=== PATIENT | female | born 2000 | race African-American/Black ===

== ENCOUNTER 2022-05-04 05:46 | Observation (INO) ==
--- NOTE | 2022-04-27 12:37 | Anesthesiology Consultation ---
Date of Service April 27, 2022 Assessment & Plan (1) Encounter for pre-operative examination: Chart Review Chart Review: Acceptable Risk for Surgery (pending preop Covid testing results ) and Patient NOT seen in Pre Admission Testing - Check test AM DOS Per nursing assessment 04/27/2022, pt traveled to [facility] (drove) and returned 04/15/22. No known Covid positive exposures or Covid related symptoms. No known Covid infection in the past 90 days. Pt is fully vaccinated for Covid. Preop Covid testing scheduled 04/30/22= will await results History Surgery Operation Date: 05/04/22 07:30 Proposed Procedures p Bilateral Breast Reduction - Jonna Olvera MD Height/Weight Height: 5 ft 4 in Weight: 97.522 kg Allergies Allergy/AdvReac Type Severity Reaction Status Date / Time Sulfa (Sulfonamide Allergy Intermediate hives Verified 04/27/22 12:04 Antibiotics) Medications Home Medications Medication Instructions Recorded Confirmed Last Taken hydroxyzine HCl 25 mg tablet 25 mg PO BID PRN Anxiety 06/25/21 04/27/22 Unknown lamotrigine 25 mg tablet (Lamictal) 25 mg PO QAM 06/25/21 04/27/22 Unknown lisdexamfetamine 20 mg capsule 20 mg PO DAILY PRN when needing to 06/25/21 04/27/22 Unknown (Vyvanse) focus cephalexin 500 mg capsule 500 mg PO TID 7 days #21 caps 04/24/22 04/27/22 Unknown oxycodone-acetaminophen 5 mg-325 1 tab PO Q4H PRN pain 3 days #18 04/24/22 04/27/22 Unknown mg tablet (Percocet) tabs albuterol sulfate 90 mcg/actuation 2 puff inhalation Q6H PRN 04/27/22 04/27/22 Unknown aerosol inhaler Shortness Of Breath alprazolam 0.25 mg tablet 0.25 mg PO DAILY PRN Anxiety 04/27/22 04/27/22 Unknown Past Medical History Medical History ADHD Takes Vyvanse prn Anxiety and depression Asthma Inhaler prn History of COVID-19 Diagnosed 09/2021--mild symptoms, none now Macromastia Scoliosis Past Family History Family History Other Family history not known due to adoption Past Surgical History Surgical History History of adenoidectomy History of tooth extraction Social History Smoking Status: Former smoker Do You Dip or Chew Tobacco: No Smoking End Date: quit 4-5 months ago Hx Alcohol Use: Yes alcohol intake frequency: a few times a week Hx Substance Use: Yes (medical marijuana card (advised on policy)) substance use type: marijuana Last Used Substance: Unknown Last Used Substance Other:: "long time ago< I dont really use it" Lab Results Anesthesia Preop Results Results Anesthesia Widget: WBC 9.25 K/ul (4.8-10.8) 04/24/22 Hgb 12.3 g/dl (12.0-16.0) 04/24/22 Hct 38.2 % (34.1-44.9) 04/24/22 Plt 387 K/uL (130-400) 04/24/22 Na 136 mmol/L (136-145) 04/24/22 K 3.9 mmol/L (3.5-5.1) 04/24/22 Cl 103 mmol/L (98-107) 04/24/22 CO2 28 mmol/L (21-32) 04/24/22 BUN 10 mg/dl (6-23) 04/24/22 Creat 0.84 mg/dl (0.6-1.2) 04/24/22 Glucose Level 89 mg/dl (70-99(Fasting)) 04/24/22 PT 10.9 Seconds (9.0-12.0) 04/24/22 INR 1.0 (0.9-1.1) 04/24/22
[2022-05-04] MEDS ORDERED: LR 15ML/HR IV SCH (06:00)
[2022-05-04] MEDS ORDERED: ceFAZolin 2000MG 2,000 MG/15 ML SYR IV SCH (06:00)
[2022-05-04] MEDS ORDERED: fentaNYL citrate 100 MCG/2 ML VIAL IV PRN (06:52)
[2022-05-04] MEDS ORDERED: ONDANSETRON INJ 2 MG/ML 2 ML VIAL IV PRN ×2 (06:52→12:52)
[2022-05-04] MEDS ORDERED: ATROPINE SULFATE 0.1 MG/ML 10ML SYR IV PRN (06:52)
[2022-05-04] MEDS ORDERED: PROMETHAZINE HCL 6.25 MG in SODIUM CHLORIDE 0.9% 50 ML IV PRN (06:52)
--- NOTE | 2022-05-04 06:54 | History & Physical Bridge Note ---
Date of Service May 04, 2022 History & Physical Bridge Note I have examined the patient, reviewed the History & Physical and in the interval since the performance of the History & Physical I have noted the following changes of clinical significance: no changes noted
[2022-05-04] MEDS ORDERED: PROPOFOL IV EMULSION 10 MG/ML 20 ML VIAL IV ONE ×5 (07:06→14:06)
[2022-05-04] MEDS ORDERED: LIDOCAINE 2% 20 MG/ML 5 ML SYR IV ONE (07:06)
[2022-05-04] MEDS ORDERED: ROCURONIUM BROMIDE 10 MG/ML 5 ML VIAL IV ONE ×6 (07:06→12:10)
[2022-05-04] MEDS ORDERED: fentaNYL citrate 100 MCG/2 ML VIAL ONE ×2 (07:07→08:31)
[2022-05-04] MEDS ORDERED: MIDAZOLAM HCL 1 MG/ML 2ML VIAL ONE (07:07)
[2022-05-04] MEDS ORDERED: KETAMINE 50 MG/5 ML SYRINGE ONE (07:10)
[2022-05-04] MEDS ORDERED: ONDANSETRON INJ 2 MG/ML 2 ML VIAL ONE ×2 (07:11→12:10)
[2022-05-04] MEDS ORDERED: LIDOCAINE 2%/EPINEPHRINE 1:100,000 20ML ONE (07:26)
[2022-05-04] MEDS ORDERED: BUPIVACAINE 0.25% 30 ML VIAL ONE (07:27)
[2022-05-04] MEDS ORDERED: LIDOCAINE 1%/EPINEPHRINE 1:100,000 50 ML VIAL ONE (07:39)
[2022-05-04] MEDS ORDERED: TISSEEL FIBRIN SEALANT 4ML TOP ONE (08:54)
[2022-05-04] MEDS ORDERED: ePHEDrine sulfate 50 MG/ML AMP ONE (09:11)
[2022-05-04] MEDS ORDERED: HYDROmorphone INJ 1 MG/ML SYRINGE ONE (10:06)
[2022-05-04] MEDS ORDERED: NEOSTIGMINE METHYLSULFATE 1 MG/ML 10ML VIAL ONE (10:40)
[2022-05-04] MEDS ORDERED: GLYCOPYRROLATE 0.2 MG/ML VIAL ONE (10:40)
--- NOTE | 2022-05-04 11:03 | Post Operative Brief Note ---
PG Immediate Post Op with CF Date of Surgery May 04, 2022 Pre & Post Diagnosis Operation Date: 05/04/22 07:30 Pre-Op Diagnosis: Symptomatic Macromastia Post-Op Diagnosis: Symptomatic Macromastia I identified the patient and participated in the time-out.: Yes Procedure Operation Date: 05/04/22 07:30 Actual Procedures p Bilateral Breast Reduction with Free Nipple Graft(Bilateral) - Jonna Olvera MD Surgeon Jonna Olvera MD Finisher Polisher Diana Ellis PA-C Estimated Blood Loss 50 Findings Consistent with Post-Op Diagnosis Specimens Specimen Description: A. Right Breast Tissue-1116 grams B. Left Breast tissue- 820 grams Drains Andrea-Almonte Drain (bilateral 15 fr)
--- NOTE | 2022-05-04 12:07 | Surgery Progress Note ---
Date of Service May 04, 2022 Assessment & Plan (1) S/P bilateral breast reduction: Plan: Doing well s/p breast reduction. Plan to stay overnight for observation/pain control. Anticipate discharge in the AM. Subjective Patient seen in PACU. Resting comfortable. Successfully voided on bedpen. Physical Exam Physical Exam: drains have not been emptied approx 5cc serosang/bloody drainage per drain. no evidence of expanding hematoma, no drainage on gauze dressing Results & Data ([facility]) Vital Signs (Past 12 Hours) Vital Signs Temp Pulse Pulse Resp BP Pulse Ox O2 Del Method 05/04/22 11:40 63 16 123/70 100 Oxymask 05/04/22 11:30 74 14 137/77 100 Oxymask 05/04/22 11:50 74 18 136/71 100 Room Air 05/04/22 11:20 83 16 136/71 100 Oxymask 05/04/22 11:17 36.2 C L 87 14 136/80 100 Oxymask 05/04/22 06:26 36.7 C 70 20 110/58 L 98 Room Air O2 Flow Rate 05/04/22 11:40 3 05/04/22 11:30 3 05/04/22 11:50 05/04/22 11:20 6 05/04/22 11:17 6 05/04/22 06:26 PG Care Time/CCT Total # of Minutes Spent Total Time Spent with Patient: Total time spent is greater than 50% in coordination of care (as documented) at patient's floor/unit and/or counseling patient: Coding Level of Care Code None Diagnoses S/P bilateral breast reduction Z98.890
--- NOTE | 2022-05-04 12:09 | Operative Report ---
PG Post Operative Report Pre & Post Diagnosis Operation Date: 05/04/22 07:30 Pre-Op Diagnosis: Symptomatic Macromastia Post-Op Diagnosis: Symptomatic Macromastia I identified the patient and participated in the time-out.: Yes Procedure Operation Date: 05/04/22 07:30 Actual Procedures p Bilateral Breast Reduction with Free Nipple Graft(Bilateral) - Jonna rinaldi MD Surgeon Jonna Olvera MD Power Grader Operator Diana Ellis PA-C Estimated Blood Loss 50 Findings Consistent with Post-Op Diagnosis Specimens right breast 1116 g, left breast 820 grams Drains JPx2 Anesthesia Type General Complications none Indications back, neck, bilateral shoulder pain secondary to macromastia Description of Procedure The risks, benefits and alternatives of the procedure were explained to the patient who agreed and signed consent. She was identified and marked in the preoperative holding area. She desired a bra size of DD if possible. Due to very large breasts, long sternal notch to nipple distance and nipple to IMF distance, I did discuss free nipple grafting with the patient and she was aware of loss of nipple sensation and risk of depigmentation. She was brought to the operating room where she was positioned supine and placed under general anesthesia without incident. Surgical site markings were again reassessed. I began with the larger right breast. 1% lidocaine with epinephrine was used to anesthetize the planned incisions as well as the nipple areolar complex. A breast tourniquet was applied using the Madisyn clamp and lap sponge. A 42 mm cookie cutter was used to circumscribe the nipple-areolar complex. The nipple-areolar complex was then removed as a full thickness graft and placed on the back table in saline soaked sponge. At this point, tourniquet was released and the inframammary fold incision was made using 15 blade scalpel. Electrocautery was used to deepen the incision through subcutaneous fat and breast parenchyma down to chest wall. Care was taken to perform this in a bevelled direction ligating vessels as needed and achieving hemostasis with electrocautery. Once the breast was mostly undermined, the superior incision was then made to the inferior aspect of the keyhole incision. This was performed using a 15 blade scalpel. Incision was then deepened using electrocautery again full thickness through the breast. A similar incision was made laterally. Centrally, the skin was incised using electrocautery and additional breast parenchyma was resected again in a beveled fashion in order to retain some projection of the breast. Tissue was passed off for weighing. Additional resection was performed until we achieved the desired size and projection and the wound was able to be closed with minimal tension. Total resection weight on the right was 1116 grams. Hemostasis was achieved with electrocautery 0.25% Marcaine plain was used to anesthetize the incisions as well as pectoralis fascia. A 15 Maltese Daniel drain was brought out through a separate stab incision laterally toward the axilla. The keyhole was then incised using 15 blade scalpel and deepithelialized. Due to large breast size and concern for postoperative hematoma or seroma, Tisseel was sprayed into the wound bed prior to closure. T-junction was brought together using 2-0 Vicryl suture. Closure was begun first lateral to medial using 2-0 Vicryl deep dermal sutures and then medial to lateral using 2-0 Vicryl deep dermal sutures. Vertical limb was closed using a combination of 2-0 Vicryl deep dermal sutures and a 3-0 PDS interrupted dermal sutures. The inframammary fold incision was closed using 2-0 PDO deep dermal running Quill suture. The vertical limb was then closed using 3-0 Monocryl running subcuticular suture. Nipple areolar complex was inspected and thinned using a curved iris scissor. It was placed in the recipient bed and sutured into place using 4-0 silk tie over bolster sutures and 4-0 chromic interrupted sutures. A similar procedure was undertaken on the left side. Total resection weight was 820 grams on the left. There was excellent symmetry at the close of the case. No complications. Dermabond Prineo was applied to the incisions. Dry dressing followed by a surgical bra were placed. The patient was awakened and transferred to the recovery room in satisfactory condition. Diana Ellis PA-C was present and scrubbed throughout the entire procedure and was instrumental in providing retraction, preparing the nipple graft and assisting in simultaneous wound closure. I attest to the content of the Intraoperative Record and any orders documented therein. Any exceptions are noted below.
[2022-05-04] MEDS ORDERED: hydrOXYzine HCl 25 MG TAB PO PRN (12:52)
[2022-05-04] MEDS ORDERED: oxyCODONE/ACETAMINOPHEN 5mg/325mg TAB PO PRN (12:52)
[2022-05-04] MEDS ORDERED: MoRPHine SULFATE 2 MG/ML CARP IV PRN (12:52)
[2022-05-04] MEDS ORDERED: ALBUTEROL HFA 8 GM INHALER INH PRN (12:52)
[2022-05-04] MEDS ORDERED: diphenhydrAMINE Capsule 25 MG CAP PO PRN (12:52)
[2022-05-04] MEDS ORDERED: PROMETHAZINE HCL 12.5 MG in SODIUM CHLORIDE 0.9% 50 ML IV PRN (12:52)
[2022-05-04] MEDS ORDERED: MoRPHine SULFATE 4 MG/ML 1 ML CARP\\VIAL IV PRN (12:52)
[2022-05-04] MEDS ORDERED: ACETAMINOPHEN 325 MG TAB PO PRN (12:52)
[2022-05-04] MEDS ORDERED: diphenhydrAMINE 50 MG/ML VIAL IV PRN (12:52)
[2022-05-04] MEDS ORDERED: ALPRAZolam 0.25 MG TABLET PO PRN (12:52)
--- NOTE | 2022-05-04 13:00 | Anesthesiology Progress Note ---
Date of Service May 04, 2022 Anesthesia Post Procedure Vital Signs Vital Signs: Temp Pulse Pulse Resp BP Pulse Ox O2 Del Method 05/04/22 12:45 36.4 C L 58 L 18 136/74 100 Room Air 05/04/22 12:30 70 16 125/68 100 Room Air 05/04/22 12:20 61 14 123/69 100 Room Air 05/04/22 11:40 63 16 123/70 100 Oxymask 05/04/22 11:30 74 14 137/77 100 Oxymask 05/04/22 12:10 36.4 C L 62 18 128/67 100 Room Air 05/04/22 12:00 72 20 133/70 100 Room Air 05/04/22 11:50 74 18 136/71 100 Room Air 05/04/22 11:20 83 16 136/71 100 Oxymask 05/04/22 11:17 36.2 C L 87 14 136/80 100 Oxymask 05/04/22 06:26 36.7 C 70 20 110/58 L 98 Room Air O2 Flow Rate 05/04/22 12:45 05/04/22 12:30 05/04/22 12:20 05/04/22 11:40 3 05/04/22 11:30 3 05/04/22 12:10 05/04/22 12:00 05/04/22 11:50 05/04/22 11:20 6 05/04/22 11:17 6 05/04/22 06:26 Pain Intensity Bilateral Breast: Pain Intensity: 2 Transfer of Care Handoff Completed per policy Notes Mental Status: alert / awake / arousable Patient Amnestic to Procedure: Yes Nausea / Vomiting: adequately controlled Pain: adequately controlled Airway Patency, RR, SpO2: stable & adequate BP & HR: stable & adequate Hydration State: stable & adequate Anesthetic Complications: no major complications apparent
[2022-05-04] MEDS: ceFAZolin 2000MG 2,000 MG/15 ML SYR IV SCH ×2 (15:45→23:40)
[2022-05-04] MEDS: oxyCODONE/ACETAMINOPHEN 5mg/325mg TAB PO PRN (18:58)
[2022-05-05] MEDS: oxyCODONE/ACETAMINOPHEN 5mg/325mg TAB PO PRN ×3 (03:25→09:43)
[2022-05-05] MEDS ORDERED: lamoTRIgine 25 MG TAB PO SCH (09:00)
[2022-05-05] MEDS ORDERED: MULTIVITAMIN TAB PO SCH (09:00)
--- NOTE | 2022-05-05 11:55 | Surgery Progress Note ---
Date of Service May 05, 2022 Assessment & Plan (1) S/P bilateral breast reduction: Plan POD#1 s/p breast reduction. Drains removed. D/C home today with office follow-up tomorrow. Admission and Anticipated Discharge Date Admission Date: May 04, 2022 Subjective Shante is POD#1. VSS. Pain well controlled. She is tolerating regular diet. Physical Exam Physical Exam: drains with scant serous output. removed. nipples bolsters in place. minimal drainage noted on gauze dressing. Results & Data ([facility]) Vital Signs (Past 12 Hours) Vital Signs Temp Pulse Resp BP Pulse Ox O2 Del Method 05/05/22 07:32 36.8 C 83 16 105/54 L 97 Room Air 05/05/22 03:12 37.0 C 78 16 139/73 98 Room Air PG Care Time/CCT Total # of Minutes Spent Total Time Spent with Patient: Total time spent is greater than 50% in coordination of care (as documented) at patient's floor/unit and/or counseling patient: Coding Level of Care Code None Diagnoses S/P bilateral breast reduction Z98.890
--- NOTE | 2022-05-05 15:23 | Discharge Summary ---
Date of Service May 05, 2022 Admission HPI Per Admitting Provider See admission H&P Admission Exam Per Admitting Provider macromastia. See admission H&P Principal Diagnosis symptomatic macromastia Discharge Exam VSS. Drains with scant serous output- removed. bolsters intact. Discharge Data Allergies Allergy/AdvReac Type Severity Reaction Status Date / Time Sulfa (Sulfonamide Allergy Intermediate hives Verified 05/04/22 06:22 Antibiotics) Procedures Performed Operation Date: 05/04/22 07:30 Actual Procedures p Bilateral Breast Reduction with Free Nipple Graft(Bilateral) - Jonna Olvera MD Ordered Studies 05/04/22 05:00 US - OR guided needle placemen Routine Hospital Course (1) S/P bilateral breast reduction: Patient presented to [facility] with history of symptomatic macromastia. She was taken to the OR and underwent bilateral breast reduction with free nipple graft. There were no intraoperative complications. She was taken to recovery and transferred to med/surg for observation. On POD#1, she was feeling well. She was tolerating a regular diet and ambulating. On exam, her vitals were stable. Her incisions were CDI. Her drains were removed. She was discharged home with instructions to follow-up in the office in one day. Total Time Total Time Spent Total Time Spent (In Minutes): 20 Total Time Includes: Examination of the Patient and Communication With Other Providers Discharge Plan Discharge Items Patient Disposition: Home - Self-Care Reason For Visit: Symptomatic Macromastia Discharge Diagnosis: s/p breast reduction Activity: As commented below Non-emergency contact: Surgeon Call non-emergency contact if: you have any medication questions, your pain is worsening, you have a fever, your wound has increased redness and your wound pain has increased Follow-up/Referrals: Diana Ellis PA-C [Physician Facility Maintenance Technician] - 05/06/22 3:00 pm Melissa Dominguez MD [Primary Care Provider] - Diet: Regular Addtl Attending Provider Instructions: ACTIVITY RECOMMENDATIONS: __Normal activities _x_No bending, lifting or straining. Keep arms at shoulder height or below __No driving __Driving allowed when you are off pain medications _x_Walking permitted __You should have help at home for ___ days DRESSINGS: __No dressings required _x_Keep dressings dry/in place until first office visit __Remove dressings ___ and leave dressings off __Apply ice ___ days __Remove dressings and reapply garment __Apply antibiotic ointment (Bacitracin, Neosporin, etc) to wounds 3-4 times/day for 10 days BATHING: _x_Keep dressings dry _x Sponge bathing permitted way from breasts __Showering permitted _x_No swimming, hot tubs or soaking in a tub MEDICATIONS: Resume previous medications unless instructed otherwise by your surgeon. _x_Do not use aspirin, Motrin, Advil or Ibuprofen as these may promote bleeding. Please use Tylenol. _x_Prescription(s) provided: pain medication and antibiotics were provided at your last office visit. begin antibiotics today OTHER INSTRUCTIONS: __Record drain output 2-3 times per day SPECIAL CARE INSTRUCTIONS: * It is normal to have a mild fever after surgery. If your temperature is higher than 101.5 degrees F, please call the office at [phone]. * Constipation is a typical side effect of pain medication. An [id number] stool softener will help relieve this. * Leaking around surgical drains may occur and should not cause concern. Sometimes these drains become clogged. If this happens, remove the bulb and milk the clot out of the tube, then replace the bulb. * Drainage from wounds after liposuction is normal and should be expected. Garments will become soiled. You should protect furniture and bedding. This drainage sh ould mostly subside within 2-3 days. Leave garments in place unless instructed to remove them. * If you have unusual drainage from a wound or are concerned you have an infection or have any questions or concerns, please call the office at [phone]. FOLLOW UP VISIT: If not already scheduled, please call the office, , when you return home after surgery to schedule an appointment to be seen in _1__ days. Pending Studies at Discharge: Yes Studies:: pathology Stand-Alone Forms: [facility] [employer], Opioid Pain Management, Smoking Cessation Medications and DC Order Prescriptions: Continued cephalexin 500 mg capsule 500 mg PO TID 7 Days Qty: 21 0RF Rx Instructions: Please begin prescription when discharged home from surgery. oxycodone-acetaminophen [Percocet] 5-325 mg tablet 1 tab PO Q4H PRN (Reason: pain) 3 Days Qty: 18 0RF Rx Instructions: Initial therapy. post op lamotrigine [Lamictal] 25 mg tablet 25 mg PO QAM hydroxyzine HCl 25 mg tablet 25 mg PO BID PRN (Reason: Anxiety) Vyvanse 20 mg capsule 20 mg PO DAILY PRN (Reason: when needing to focus) alprazolam 0.25 mg Tablet 0.25 mg PO DAILY PRN (Reason: Anxiety) albuterol sulfate 90 mcg/actuation Hfa Aerosol Inhaler 2 puff INHALATION Q6H PRN (Reason: Shortness Of Breath) Discharge Orders: Discharge Order (Routine); Ordered 05/05/22 Ordered By: Diana Roque/Other Patient Handouts: Breast Reduction Surgery Admission Data Admit Date/Time: 05/04/22 11:15 Attending Provider: Jonna Olvera Admit Provider: Jonna Olvera Primary Care Provider: Melissa Dominguez Other Interventions: Discharge Summary Assessment (RN) Last Done: 05/05/22 11:29 Coding Level of Care Code 59242 OBS Care - Discharge Diagnoses S/P bilateral breast reduction Z98.890
== END 2022-05-05 14:28 | disposition home or self-care (01) ==
LOC: 3W 05:46 → ASU 05:46